=== PATIENT | female | born 1965 | race Caucasian/White ===

== ENCOUNTER → 2020-10-23 | Outpatient (CLI) | payer MEDICARE ==
[~2020-10-23] MED LIST: EFFEXOR XR75 MG PO; FOLIC ACID 1 MG1 MG PO; GLUCOPHAGE XR500 MG PO; LIPITOR TAB 1010 MG PO; METHOTREXATE T2.5 MG PO; NEURONTIN 100100 MG PO; OMNICEF 300 MG300 MG PO; PRINIVIL20 MG PO; PROTONIX 20 MG20 MG PO; QVAR INH; ROBITUSSIN AC480 ML PO; SYNTHROID75 MCG PO; TESSALON PERLE100 MG PO; ULTRAM50 MG PO; VENTOLIN HFA 66.7 GM INH; VIBRAMYCIN100 MG PO; ZITHROMAX500 MG PO
[2020-10-23 13:58] LABS: BORDETELLA PARAPERTUSSIS Not Detected (Not Detectd); BORDETELLA PERTUSSIS Not Detected (Not Detectd); CHLAMYDIA PNEUMONIAE Not Detected (Not Detectd); CORONAVIRUS HKU1 Not Detected (Not Detectd); CORONAVIRUS NL63 Not Detected (Not Detectd); CORONAVIRUS OC43 Not Detected (Not Detectd); CORONOAVIRUS 229E Not Detected (Not Detectd); HUMAN METAPNEUMOVIRUS Not Detected (Not Detectd); HUMAN RHINOVIRUS/ENTEROVIRUS Not Detected (Not Detectd); INFLUENZA A Not Detected (Not Detectd); INFLUENZA B Not Detected (Not Detectd); MYCOPLASMA PNEUMONIAE Not Detected (Not Detectd); PARAINFLUENZA VIRUS 1 Not Detected (Not Detectd); PARAINFLUENZA VIRUS 2 Not Detected (Not Detectd); PARAINFLUENZA VIRUS 4 Not Detected (Not Detectd); RESPIRATORY SYNCYTIAL VIRUS Not Detected (Not Detectd)
[2020-10-23 15:11] LABS: PARAINFLUENZA VIRUS 3 DETECTED (Not Detectd); SARS-CoV-2 NOT DETECTED (Not Detectd)
== END ==
LOC: LAB 13:08
PROVIDERS: Physician Assistant
DX: J06.9 Acute upper respiratory infection, unspecified (principal); Z20.822 Contact with and (suspected) exposure to COVID-19
CPT/HCPCS: 36415; 71046; 87633

== ENCOUNTER 2021-01-17 11:49 | Emergency (ER) | payer MEDICARE ==
[~2021-01-17] VITALS: Ht 154.9 cm; Wt 79.4 kg
[2021-01-17 14:07] LABS: HEMOGLOBIN 12.3 gm/dl (12.3-15.3); RED BLOOD COUNT 4.38 M/UL (4.00-5.10); WHITE BLOOD COUNT 4.8 K/UL (4.5-11.0)
[2021-01-17 14:34] LABS: BUN/CREATININE RATIO 14 (0-10)
[2021-01-17] MEDS ORDERED: IBUPROFEN800 MG PO (16:29)
[2021-01-17] MEDS ORDERED: PROAIR HFA8.5 GM INH (16:29)
[2021-01-17] MEDS ORDERED: MUCINEX DM ER1 EACH PO (16:29)
== END 2021-01-17 16:38 | disposition home or self-care (01) ==
LOC: ER1 11:49
PROVIDERS: Physician Assistant
DX: Z23 Encounter for immunization (principal); U07.1 COVID-19; J12.82 Pneumonia due to coronavirus disease 2019; E11.9 Type 2 diabetes mellitus without complications; I10 Essential (primary) hypertension
CPT/HCPCS: 71045; 80053; 81001; 82550; 82553; 83874; 84484; 85025; 87081; 87880; 93005; 99285; J7030; M0243

== ENCOUNTER 2021-01-19 06:09 | Emergency (ER) | payer MEDICARE ==
[~2021-01-19 06:09] MED LIST changes: +IBUPROFEN800 MG PO; +MUCINEX DM ER1 EACH PO; +PROAIR HFA8.5 GM INH
[2021-01-19 06:57] LABS: HEMOGLOBIN 12.3 gm/dl (12.3-15.3); RED BLOOD COUNT 4.34 M/UL (4.00-5.10); WHITE BLOOD COUNT 5.8 K/UL (4.5-11.0)
[2021-01-19 07:28] LABS: BUN/CREATININE RATIO 13 (0-10)
== END 2021-01-19 11:25 | disposition home or self-care (01) ==
LOC: ER1 06:09
PROVIDERS: Physician Assistant
DX: U07.1 COVID-19 (principal); J12.82 Pneumonia due to coronavirus disease 2019; I10 Essential (primary) hypertension; E11.9 Type 2 diabetes mellitus without complications; Z90.710 Acquired absence of both cervix and uterus
CPT/HCPCS: 71045; 80053; 82550; 82553; 83874; 84484; 85025; 85379; 93005; 99285; Q9967

== ENCOUNTER → 2021-01-26 | Outpatient (CLI) | payer MEDICARE | LOC: KOH-I 13:54 | DX: R05 Cough (principal); R91.8 Other nonspecific abnormal finding of lung field | CPT/HCPCS: 71046 ==

== ENCOUNTER → 2021-02-12 | Outpatient (CLI) | payer MEDICARE | LOC: KOH-I 11:15 | DX: R05 Cough (principal) | CPT/HCPCS: 71046 ==